=== PATIENT | female | born 1965 ===

== ENCOUNTER → 2024-11-20 07:19 | Outpatient (CLI) | payer OTHER ==
[2024-11-20 09:14] LABS: ALT/SGPT 28.0 U/L (12-78); AST/SGOT 10.0 U/L (15-37); BILIRUBIN TOTAL 0.51 mg/dL (0.3-1.2); BUN CREA RATIO 14.0 (7.0-25.0); CREATININE SERUM 0.77 mg/dL (0.55-1.02); GFR 76.73; GLOBULINA 3.1 G/DL (2.4-3.5); OSMOLALITY SERUM 288.0 MOSM/KG (275-295)
[2024-11-20 09:18] LABS: GLUCOSE FASTING 239.0 mg/dL (65-100)
== END | disposition home or self-care (01) ==
LOC: LAB 07:19
DX: E11.9 Type 2 diabetes mellitus without complications (principal); R73.01 Impaired fasting glucose; N18.1 Chronic kidney disease, stage 1

== ENCOUNTER 2024-11-20 08:04 | Outpatient (CLI) | payer OTHER | END 2024-11-20 08:07 | disposition home or self-care (01) | LOC: RAD 08:04 | DX: I11.9 Hypertensive heart disease without heart failure (principal); E78.2 Mixed hyperlipidemia ==